=== PATIENT | female | born 1980 | race Caucasian/White ===

== ENCOUNTER 2016-07-28 14:45 | Outpatient (RCR) | payer OTHER | END 2016-08-04 | disposition still patient (30) | LOC: WSPT | DX: M25.861 Other specified joint disorders, right knee (principal) ==

== ENCOUNTER 2016-08-17 12:54 | Outpatient (RCR) | payer OTHER | END 2016-08-18 07:48 | disposition home or self-care (01) | LOC: WSPT 12:54 | DX: M25.562 Pain in left knee (principal); M25.561 Pain in right knee ==

== ENCOUNTER → 2018-07-08 | Outpatient (CLI) | payer OTHER | LOC: COL.RAD 09:00 | DX: Z11.3 Encounter for screening for infections with a predominantly sexual mode of transmission (principal); N83.01 Follicular cyst of right ovary; N97.9 Female infertility, unspecified ==